=== PATIENT | male | born 1965 | race Caucasian/White ===

== ENCOUNTER 2022-10-20 09:44 | Outpatient (CLI) | payer BC, SELFPAY ==
[2022-10-20 13:44] LABS: Chloride* 102 mmol/L (96-114)
[2022-10-20 13:45] LABS: Albumin* 4.9 g/dL (3.3-5.0); Potassium* 4.5 mmol/L (3.6-5.1); Sodium* 139 mmol/L (135-149)
[2022-10-20 13:47] LABS: Creatinine* 0.8 mg/dL (0.5-1.5); Estimated Glomerular Filt Rate 104 ml/min
[2022-10-20 13:48] LABS: Alanine Aminotransferase* 143 U/L (4-50); Alkaline Phosphatase* 95 U/L (40-150); Aspartate Amino Transferase* 124 U/L (12-35); Bilirubin Total* 0.5 mg/dL (0.1-1.5); Blood Urea Nitrogen* 12 mg/dL (7-30); Calcium* 9.6 mg/dL (8.4-10.6); Carbon Dioxide* 26 mmol/L (20-32); Glucose* 96 mg/dL (60-115); Total Protein* 8.3 g/dL (6.0-8.3)
[2022-10-20 14:19] LABS: PSA Screen* 0.26 ng/mL (0.10-4.00)
[2022-10-20 14:25] LABS: HIV 1/2/P24 Combo Screen* Negative (Negative); Hepatitis C Virus Antibody* Negative (Negative)
== END 2022-10-20 09:45 | disposition home or self-care (01) ==
PROVIDERS: PCP Family Medicine; Visit Provider Physician Assistant Medical
DX: R79.89 Other specified abnormal findings of blood chemistry (principal); K76.0 Fatty (change of) liver, not elsewhere classified
CPT/HCPCS: 80053; 84153; 86703; 86803

== ENCOUNTER 2022-10-22 07:02 | Outpatient (CLI) | payer BC, SELFPAY ==
--- NOTE | 2022-10-22 07:15 | CRLHL7_ITS ---
For Patients: As a result of the Century Cures Act, medical imaging exams and procedure reports are released immediately into your electronic medical record. You may view this report before your referring provider. If you have questions, please contact your health care provider. CLINICAL HISTORY: elevated LFTs.? splenomegaly COMPARISON: none TECHNIQUE: Real time jefferson scale imaging and color Doppler analysis was performed of the abdomen. FINDINGS: Sonographic imaging demonstrates normal size and diffusely increased echotexture of the liver. The spleen is of normal size measuring 12.1 cm. The pancreas appears normal. The proximal abdominal aorta and IVC appear normal. There is no evidence of ascites. The gallbladder is of normal size and there is no evidence of sludge or stones within the gallbladder lumen. The gallbladder wall measures 2 mm in thickness. The common bile duct measures 4 mm in size within the johnnie hepatis. The kidneys appear symmetric. The right kidney measures 11.4 cm in length and the left kidney measures 12.1 cm. There is no evidence of a renal calculus or hydronephrosis. IMPRESSION: Diffuse hepatic steatosis. Normal spleen size. Normal gallbladder. Dictated by Dion Montes MD @ 10/22/2022 8:28:07 AM (Electronically Signed)
== END 2022-10-22 07:03 | disposition home or self-care (01) ==
PROVIDERS: PCP Family Medicine; Visit Provider Physician Assistant Medical
DX: R79.89 Other specified abnormal findings of blood chemistry (principal); K76.0 Fatty (change of) liver, not elsewhere classified
CPT/HCPCS: 76705

== ENCOUNTER 2022-11-25 08:43 | Outpatient (CLI) | payer BC, SELFPAY ==
[2022-11-25 13:59] LABS: Albumin* 4.7 g/dL (3.3-5.0)
[2022-11-25 14:01] LABS: Bilirubin Direct* 0.3 mg/dL (0.0-0.5); Bilirubin Total* 0.6 mg/dL (0.1-1.5)
[2022-11-25 14:02] LABS: Alanine Aminotransferase* 193 U/L (4-50); Alkaline Phosphatase* 74 U/L (40-150); Aspartate Amino Transferase* 150 U/L (12-35)
[2022-11-26 08:57] LABS: Cholesterol* 320 mg/dL (90-199)
[2022-11-26 08:58] LABS: HDL Cholesterol* 47 mg/dL (>=40); LDL Cholesterol Calculated 224 mg/dL (<100); Triglycerides* 247 mg/dL (40-149)
[2022-11-26 09:27] LABS: PSA Screen* 0.27 ng/mL (0.10-4.00)
== END 2022-11-25 08:44 | disposition home or self-care (01) ==
PROVIDERS: PCP Physician Assistant Medical; Visit Provider Physician Assistant Medical
DX: Z00.00 Encounter for general adult medical examination without abnormal findings (principal); E78.5 Hyperlipidemia, unspecified; I10 Essential (primary) hypertension; E78.1 Pure hyperglyceridemia; R74.01 Elevation of levels of liver transaminase levels; F41.9 Anxiety disorder, unspecified; Z12.5 Encounter for screening for malignant neoplasm of prostate
CPT/HCPCS: 80061; 80076; 84153

== ENCOUNTER 2024-05-27 09:19 | Outpatient (CLI) | payer BC, SELFPAY | END 2024-05-27 09:20 | disposition home or self-care (01) | PROVIDERS: PCP Physician Assistant Medical; Visit Provider Family Medicine | DX: I10 Essential (primary) hypertension (principal); E78.5 Hyperlipidemia, unspecified; R74.01 Elevation of levels of liver transaminase levels | CPT/HCPCS: 80053; 80061 ==

== ENCOUNTER 2025-05-11 09:01 | Outpatient (CLI) | payer BC, SELFPAY | END 2025-05-11 09:02 | disposition home or self-care (01) | PROVIDERS: PCP Physician Assistant Medical; Visit Provider Physician Assistant Medical | DX: Z00.00 Encounter for general adult medical examination without abnormal findings (principal); Z13.1 Encounter for screening for diabetes mellitus; I10 Essential (primary) hypertension; E78.5 Hyperlipidemia, unspecified; Z12.5 Encounter for screening for malignant neoplasm of prostate; Z11.3 Encounter for screening for infections with a predominantly sexual mode of transmission; K76.0 Fatty (change of) liver, not elsewhere classified | CPT/HCPCS: 80053; 80061; 82043; 82570; 84443; 86703; 86803; G0103 ==

== ENCOUNTER 2025-06-05 06:15 | Outpatient (CLI) | payer BC, SELFPAY ==
--- NOTE | 2025-06-05 07:50 | P.ANES_ITS ---
Anesthesia Charges Start Date/Time Anesthesia Start Date: 06/05/25 Anesthesia Start Time: 07:27 Stop Date/Time Anesthesia Stop Date: 06/05/25 Anesthesia Stop Time: 07:43 Coding CPT Codes CPT Codes: ANES LWR INTST SCR COLSC - [id number] ([id number]) P2 - PATIENT W/MILD SYST DISEASE, QK - HEAD BAKER 2-4 CNCRNT ANES PROC, QX - CONVERTER SKIMMER SVC W/ MD MED DIRECTION
--- NOTE | 2025-06-05 07:50 | W.ANESCHARGE ---
Anesthesia Charges Start Date/Time Anesthesia Start Date: 06/05/25 Anesthesia Start Time: 07:27 Stop Date/Time Anesthesia Stop Date: 06/05/25 Anesthesia Stop Time: 07:43 Coding CPT Codes CPT Codes: ANES LWR INTST SCR COLSC - [id number] ([id number]) P2 - PATIENT W/MILD SYST DISEASE, QK - SHIPPING ASSOCIATE 2-4 CNCRNT ANES PROC, QX - BIAS CUTTING MACHINE OPERATOR SVC W/ MD MED DIRECTION
--- NOTE | 2025-06-05 08:09 | P.ANES_ITS ---
Anesthesia Charges Start Date/Time Anesthesia Start Date: 06/05/25 Anesthesia Start Time: 07:27 Stop Date/Time Anesthesia Stop Date: 06/05/25 Anesthesia Stop Time: 07:43 Coding CPT Codes CPT Codes: ANES LWR INTST SCR COLSC - [id number] ([id number]) P2 - PATIENT W/MILD SYST DISEASE, QK - POWER REACTOR OPERATOR 2-4 CNCRNT ANES PROC, QX - ADJUNCT LATIN PROFESSOR SVC W/ MD MED DIRECTION
--- NOTE | 2025-06-05 08:09 | W.ANESCHARGE ---
Anesthesia Charges Start Date/Time Anesthesia Start Date: 06/05/25 Anesthesia Start Time: 07:27 Stop Date/Time Anesthesia Stop Date: 06/05/25 Anesthesia Stop Time: 07:43 Coding CPT Codes CPT Codes: ANES LWR INTST SCR COLSC - [id number] ([id number]) P2 - PATIENT W/MILD SYST DISEASE, QK - CERTIFIED MEDICAL DOSIMETRIST 2-4 CNCRNT ANES PROC, QX - FINE CRAFT ARTIST SVC W/ MD MED DIRECTION
== END 2025-06-05 06:16 | disposition home or self-care (01) ==
LOC: OP CLINIC 06:16
PROVIDERS: PCP Physician Assistant Medical; Visit Provider Internal Medicine
DX: Z12.11 Encounter for screening for malignant neoplasm of colon (principal); Z80.0 Family history of malignant neoplasm of digestive organs
CPT/HCPCS: 00812; 45378; J2704